=== PATIENT | female | born 1960 | race Caucasian/White ===

== ENCOUNTER 2017-10-30 20:06 | Emergency (ER) | payer OTHER ==
--- NOTE | 2017-10-30 21:34 | RAD REPORT ---
EXAM DESCRIPTION: RAD - Ankle Left 3 View -10/30/2017 9:25 pm CLINICAL HISTORY: Left ankle pain FINDINGS: No acute fracture or dislocation is seen. A small bony density adjacent to the lateral mal leolus appears chronic. A lucency within the lateral malleolus could be indicating an erosion. Small osteophytes are present. Soft tissue swelling is present about the ankle. Large calcaneal spurs are seen.
--- NOTE | 2017-10-30 22:11 | EDPHYS ---
Physician Documentation [facility] Name: Yasmeen Owens Age: 56 yrs Sex: Female : 1960 Arrival Date: 10/30/2017 Time: 20:12 Bed 16 Private MD: ED Physician Elkin Smith HPI: 10/30 22:00 This 56 yrs old Female presents to ER via Wheelchair with complaints of Ankle pm1 Injury. 22:00 The patient presents with pain. The complaints affect the left ankle. Onset: The pm1 symptoms/episode began/occurred 2 week(s) ago. Context: The problem was sustained at home, resulted from Patient rolled her left ankle when she misstep two weeks ago. Patient reports that she is able to move her ankle from but painful with moving her foot laterally and medially, The patient can fully bear weight on the affected extremity. the patient is able to ambulate. Associated signs and symptoms: Pertinent negatives: calf tenderness, fever, numbness, tingling, weakness. Modifying factors: The symptoms are alleviated by resting the symptoms are aggravated by movement. Severity of symptoms: in the emergency department the symptoms have improved. The patient has not experienced similar symptoms in the past. Historical: - Allergies: 20:22 Cortisone; aj 20:22 Flexeril; aj 20:22 tramadol; aj 20:22 Trazodone; aj - Home Meds: 20:22 fluid pill [Active]; lisinopril Oral [Active]; methotrexate sodium 2.5 mg Oral tab 1 aj tab WEEKLY [Active]; pravastatin 10 mg Oral tab [Active]; Vitamin D [Active]; - PMHx: 20:22 Hypertension; Rheumatoid Arthritis; aj - PSHx: 20:22 mass removal out of right breast; aj - Immunization history:: Adult Immunizations up to date. - Social history:: Smoking status: Patient uses tobacco products, smokes one pack cigarettes per day. - Ebola Screening: : Patient negative for fever greater than or equal to 101.5 degrees Fahrenheit, and additional compatible Ebola Virus Disease symptoms Patient denies exposure to infectious person Patient denies travel to an Ebola-affected area in the 21 days before illness onset No symptoms or risks identified at this time. ROS: 22:00 Constitutional: Negative for fever, chills, and weight loss, Eyes: Negative for injury, pm1 pain, redness, and discharge, ENT: Negative for injury, pain, and discharge, Neck: Negative for injury, pain, and swelling, Cardiovascular: Negative for chest pain, palpitations, and edema, Respiratory: Negative for shortness of breath, cough, wheezing, and pleuritic chest pain, Abdomen/GI: Negative for abdominal pain, nausea, vomiting, diarrhea, and constipation, Back: Negative for injury and pain. 22:00 Skin: Negative for injury, rash, and discoloration, Neuro: Negative for headache, weakness, numbness, tingling, and seizure. 22:00 MS/extremity: Positive for pain, of the anterior aspect of left ankle and left lateral ankle, Negative for decreased range of motion, deformity. Exam: 22:00 Constitutional: This is a well developed, well nourished patient who is awake, alert, pm1 and in no acute distress. Head/Face: Normocephalic, atraumatic. Eyes: Pupils equal round and reactive to light, extra-ocular motions intact. Lids and lashes normal. Conjunctiva and sclera are non-icteric and not injected. Cornea within normal limits. Periorbital areas with no swelling, redness, or edema. ENT: Nares patent. No nasal discharge, no septal abnormalities noted. Tympanic membranes are normal and external auditory canals are clear. Oropharynx with no redness, swelling, or masses, exudates, or evidence of obstruction, uvula midline. Mucous membranes moist. Neck: Trachea midline, no thyromegaly or masses palpated, and no cervical lymphadenopathy. Supple, full range of motion without nuchal rigidity, or vertebral point tenderness. No Meningismus. Chest/axilla: Normal chest wall appearance and motion. Nontender with no deformity. No lesions are appreciated. Cardiovascular: Regular rate and rhythm with a normal S1 and S2. No gallops, murmurs, or rubs. Normal PMI, no JVD. No pulse deficits. Respiratory: Lungs have equal breath sounds bilaterally, clear to auscultation and percussion. No rales, rhonchi or wheezes noted. No increased work of breathing, no retractions or nasal flaring. Abdomen/GI: Soft, non-tender, with normal bowel sounds. No distension or tympany. No guarding or rebound. No evidence of tenderness throughout. Back: No spinal tenderness. No costovertebral tenderness. Full range of motion. Skin: Warm, dry with normal turgor. Normal color with no rashes, no lesions, and no evidence of cellulitis. 22:00 Musculoskeletal/extremity: Extremities: grossly normal except: noted in the left lateral ankle: swelling, tenderness, There is no evidence of deformity, ROM: intact in all extremities, Circulation is intact in all extremities. Sensation intact. Vital Signs: 20:22 BP 130 / 94; Pulse 91; Resp 20; Temp 98.7; Pulse Ox 96% on R/A; Weight 117.93 kg; aj Height 5 ft. 9 in. (175.26 cm); 21:26 BP 110 / 75; Pulse 88; Resp 18; Pulse Ox 96% on R/A; tl2 20:22 Body Mass Index 38.39 (117.93 kg, 175.26 cm) aj MDM: 21:30 Patient medically screened. pm1 22:09 Data reviewed: vital signs. Data interpreted: Pulse oximetry: on room air is 96 %. pm1 Interpretation: normal. Counseling: I had a detailed discussion with the patient and/or guardian regarding: the historical points, exam findings, and any diagnostic results supporting the discharge/admit diagnosis, radiology results, the need for outpatient follow up, a orthopedic surgeon, to return to the emergency department if symptoms worsen or persist or if there are any questions or concerns that arise at home. 22:10 ED course: patient not given crutches because she has a wheelchair already. pm1 Additionally she had RA to right hip which makes he a fall risk. 10/30 20:24 Order name: XRAY Ankle LEFT 3 view; Complete Time: 21:58 10/30 22:08 Order name: Aircast Ankle Splint; Complete Time: 22:29 pm1 Administered Medications: No medications were administered Disposition: 10/31 07:14 Co-signature as Attending Physician, Elkin Smith MD Available for consultation at ps1 all times. . Disposition: 10/30/17 22:10 Discharged to Home. Impression: Sprain of unspecified ligament of left ankle. - Condition is Stable. - Discharge Instructions: Ankle Sprain, Ankle Pain. - Medication Reconciliation Form, Thank You Letter form. - Follow up: Emergency Department; When: As needed; Reason: Worsening of condition. Follow up: Private Physician; When: 2 - 3 days; Reason: Recheck today's complaints, Continuance of care, Re-evaluation by your physician. - Problem is new. - Symptoms have improved. Signatures: Dispatcher [employer] EDSravani Olivares RN RN Frank Diaz NP [employer] TECHNICIAN pm1 Lina Guy RN RN tl2 Elkin Smith MD MD ps1 Corrections: (The following items were deleted from the chart) 10/30 22:35 22:10 10/30/2017 22:10 Discharged to Home. Impression: Sprain of unspecified ligament tl2 of left ankle. Condition is Stable. Forms are Medication Reconciliation Form, Thank You Letter, Antibiotic Education, Prescription Opioid Use. Follow up: Emergency Department; When: As needed; Reason: Worsening of condition. Follow up: Private Physician; When: 2 - 3 days; Reason: Recheck today's complaints, Continuance of care, Re-evaluation by your physician. Problem is new. Symptoms have improved. pm1
--- NOTE | 2017-10-30 22:11 | ER ---
Nurse's Notes [facility] Name: Yasmeen Owens Age: 56 yrs Sex: Female : 1960 Arrival Date: 10/30/2017 Time: 20:12 Bed 16 Private MD: Diagnosis: Sprain of unspecified ligament of left ankle Presentation: 10/30 20:21 Presenting complaint: Patient states: Left ankle pain and swelling for 2 weeks. aj Transition of care: patient was not received from another setting of care. Onset of symptoms was October 14, 2017. Risk Assessment: Do you want to hurt yourself or someone else? Patient reports no desire to harm self or others. Care prior to arrival: None. 20:21 Method Of Arrival: Wheelchair aj 20:21 Acuity: AMRIT 4 aj 21:16 Initial Sepsis Screen: Does the patient meet any 2 criteria? No. Patient's initial tl2 sepsis screen is negative. Does the patient have a suspected source of infection? No. Patient's initial sepsis screen is negative. Triage Assessment: 20:22 General: Appears in no apparent distress. comfortable, Behavior is calm, cooperative, aj appropriate for age. Pain: Complains of pain in left lateral ankle and anterior aspect of left ankle. Neuro: Level of Consciousness is awake, alert, obeys commands, Oriented to person, place, time, situation, Appropriate for age. Respiratory: Airway is patent Respiratory effort is even, unlabored, Respiratory pattern is regular, symmetrical. Derm: Skin is intact, is healthy with good turgor, Skin is pink, warm \T\ dry. normal. Musculoskeletal: Reports pain in left lateral ankle and anterior aspect of left ankle. Historical: - Allergies: 20:22 Cortisone; aj 20:22 Flexeril; aj 20:22 tramadol; aj 20:22 Trazodone; aj - Home Meds: 20:22 fluid pill [Active]; lisinopril Oral [Active]; methotrexate sodium 2.5 mg Oral tab 1 aj tab WEEKLY [Active]; pravastatin 10 mg Oral tab [Active]; Vitamin D [Active]; - PMHx: 20:22 Hypertension; Rheumatoid Arthritis; aj - PSHx: 20:22 mass removal out of right breast; aj - Immunization history:: Adult Immunizations up to date. - Social history:: Smoking status: Patient uses tobacco products, smokes one pack cigarettes per day. - Ebola Screening: : Patient negative for fever greater than or equal to 101.5 degrees Fahrenheit, and additional compatible Ebola Virus Disease symptoms Patient denies exposure to infectious person Patient denies travel to an Ebola-affected area in the 21 days before illness onset No symptoms or risks identified at this time. Screenin:16 Abuse screen: Denies threats or abuse. Nutritional screening: No deficits noted. tl2 Tuberculosis screening: No symptoms or risk factors identified. Fall Risk Gait- Impaired (20 pts.). Assessment: 21:26 General: Appears in no apparent distress. uncomfortable, Behavior is calm, cooperative, tl2 appropriate for age. Pain: Complains of pain in left lateral ankle Pain does not radiate. Neuro: Level of Consciousness is awake, alert, obeys commands, Oriented to person, place, time, situation. Cardiovascular: Denies chest pain. Cardiovascular: Pulses are all present. Respiratory: Airway is patent Respiratory effort is even, unlabored, Respiratory pattern is regular, symmetrical. GI: No signs and/or symptoms were reported involving the gastrointestinal system. : No signs and/or symptoms were reported regarding the genitourinary system. Derm: Skin is pink, warm \T\ dry. Musculoskeletal: Circulation, motion, and sensation intact. Capillary refill < 3 seconds, Range of motion: limited in left ankle Swelling present in left lateral ankle. 22:33 Reassessment: Patient appears in no apparent distress at this time. Patient and/or tl2 family updated on plan of care and expected duration. Pain level reassessed. Patient is alert, oriented x 3, equal unlabored respirations, skin warm/dry/pink. Pt verbalized understanding of discharge instructions and use of ankle aircast. Vital Signs: 20:22 BP 130 / 94; Pulse 91; Resp 20; Temp 98.7; Pulse Ox 96% on R/A; Weight 117.93 kg; aj Height 5 ft. 9 in. (175.26 cm); 21:26 BP 110 / 75; Pulse 88; Resp 18; Pulse Ox 96% on R/A; tl2 20:22 Body Mass Index 38.39 (117.93 kg, 175.26 cm) ED Course: 20:12 Patient arrived in ED. am2 20:22 Triage completed. aj 20:22 Arm band placed on left wrist. Patient placed in waiting room, Patient notified of wait aj time. X-ray ordered. 21:15 Lina Guy, RN is Primary Nurse. tl2 21:16 Patient has correct armband on for positive identification. Bed in low position. Call tl2 light in reach. Side rails up X 1. Adult w/ patient. 21:20 Frank Lemon NP is PHCP. pm1 21:20 Elkin Smith MD is Attending Physician. pm1 21:22 XRAY Ankle LEFT 3 view In Process Unspecified. EDMS 21:26 No provider procedures requiring assistance completed. tl2 22:33 Patient did not have IV access during this emergency room visit. tl2 Administered Medications: No medications were administered Outcome: 22:10 Discharge ordered by . pm1 22:33 Discharged to home via wheelchair, with family. tl2 22:33 Condition: stable 22:33 Discharge instructions given to patient, family, Instructed on discharge instructions, follow up and referral plans. 22:35 Patient left the ED. tl2 Signatures: Dispatcher [employer] EDMS Sravani Snow RN RN aj Marinas, Patrick, NP DATA ENTRY PROCESSOR pm1 Lina Guy, KAREN RN tl2 Sarvani Osborne
[2017-10-30 22:40] VITALS: TEMP 98.7; O2SAT 96
[2017-10-30 22:41] VITALS: BP 110/75
== END 2017-10-30 22:35 | disposition home or self-care (01) ==
LOC: ER 20:06
DX: S93.402A Sprain of unspecified ligament of left ankle, initial encounter (principal); F17.210 Nicotine dependence, cigarettes, uncomplicated; X50.1XXA Overexertion from prolonged static or awkward postures, initial encounter; Y93.89 Activity, other specified; Y92.009 Unspecified place in unspecified non-institutional (private) residence as the place of occurrence of the external cause; Y99.9 Unspecified external cause status; Z88.6 Allergy status to analgesic agent; Z88.8 Allergy status to other drugs, medicaments and biological substances
CPT/HCPCS: 99283